=== PATIENT | female | born 1960 | race Caucasian/White ===

== ENCOUNTER 2016-09-22 09:42 | Emergency (ER) | payer MEDICAID, SELFPAY ==
[2016-09-22 09:43] VITALS: BP 148/95; PULSE 104; RESP 24; TEMP 36.6; O2SAT 98; BMI 24.0
--- NOTE | 2016-09-22 10:08 | ED.DCSUM_ITS ---
- ER Visit Summary Date of Service: 09/22/16 Chief Complaint: Diarrhea [] History of Present Illness: The patient is a 55 F He states for the past 2 days she has had diarrhea. When asked to describe it the only thing she can tell me is not brown. She states that she feels dehydrated and lightheaded when she stands up. She notes nausea without vomiting. No recent travel no bad food no recent antibiotics. She buys bottled water. When asked if she has any chronic medical problems she replies yes. She has not taken any Imodium because it has never worked for me. She states that she feels dehydrated and her electrolytes are off. No fevers. No blood in the stool. No mucus. History of inflammatory bowel disease.[] Physical Examination: Pressure 148/95 heart rate 104 respirations 16 pulse ox 98 % on room air temperature 97.9 Gen: Well-nourished well-developed Head: Normocephalic atraumatic Eyes: Perrl EOMI ENT: TMs clear no rhinorrhea moist mucous membranes Neck: Supple no lymphadenopathy no JVD nontender CVS: Slightly tachycardic regular rate rhythm no murmurs normal S1-S2 Respiratory: No distress clear to auscultation bilaterally chest nontender Abdomen: Soft nontender nondistended hyperactive bowel sounds no masses Back: Nontender Extremity: Nontender no edema Skin: Normal color no rash Neuro: alert orientated ?3 CN II-XII intact normal strength sensation reflexes gait cerebellar Psych: Normal affect normal mood [] Test Results: CBC BMP were obtained. These were negative. C. difficile fecal leukocytes were also negative. [] Emergency Department Course and Treatment: Patient received IV fluids and Imodium. Her orthostatics are negative. Patient is up walking in the department. I believe this to be a viral illness. [] Disposition: Home [] Impression:. 1. Diarrhea [] ED Disposition - Plan for ED Patient: Chief Complaint: General Illness Referrals: Marcelle Perez MD [Primary Care Provider] -
[2016-09-22 10:26] LABS: Absolute Lymphocyte Count 1.83 X10^3/ul (0.83-4.51); Absolute Neutrophil Count 4.5 X10^3/uL (2.0-7.7); Basophil# 0.01 X10^3/uL; Basophil% 0.1 % (0-1); Eosinophil# 0.03 X10^3/uL; Eosinophils% 0.4 % (0-5); Hematocrit 43.3 % (37-47); Hemoglobin 15.4 g/dl (12.0-15.0); Lymphocyte # 1.83 X10^3/ul (4.0); Lymphocyte % 27.2 % (19-41); Mean Corp Hgb Conc 35.6 g/gl (32-36); Mean Corpuscular Hgb 30.1 pg (27.0-32.0); Mean Corpuscular Volume 84.6 fL (81-99); Mean Platelet Vol. 8.6 fl (6.2-12.0); Monocyte# 0.39 X10^3/uL; Monocyte% 5.8 % (0-10); Neutrophil # 4.46 X10^3/uL (2.7-7.7); Neutrophil % 66.4 % (47-70); Platelet Count 246 K/mm3 (150-450); RBC Distribution Width CV 12.4 % (11.6-14.6); RBC Distribution Width SD 37.8 fl (35.1-43.9); Red Blood Count 5.12 M/mm3 (4.2-5.4); White Blood Count 6.7 K/mm3 (4.4-11.0)
[2016-09-22 10:28] LABS: POSITIVE COUNT NO; POSITIVE DIFFERENTIAL NO; POSITIVE MORPHOLOGY NO
[2016-09-22] MEDS: 0.9% Normal Saline 1,000 ML 1000 ML IV (10:28)
[2016-09-22] MEDS: Loperamide 2 MG Capsule 4 MG PO (10:28)
[2016-09-22 10:35] VITALS: BP 157/89; BP 159/80; PULSE 78; PULSE 84
[2016-09-22 10:40] LABS: Anion Gap 9 (5-15); BUN 7 mg/dL (7-18); BUN/Creat Ratio 12.9 RATIO (10-20); Calcium,Total 9.8 mg/dL (8.5-10.1); Chloride 94 mmol/L (98-107); Creatinine, Serum 0.54 mg/dL (0.55-1.02); EST Glomerular Filtration Rate 124 mL/min (>60); Est Glom Filt Rate - Afr Amer 149 mL/min (>60); Estimated Creatinine Clearance 100.45 ml/min; Glucose 102 mg/dL (70-110); Potassium 3.6 mmol/L (3.5-5.1); Sodium Level 130 mmol/L (136-145)
[2016-09-22 12:58] VITALS: BP 164/87; PULSE 88; RESP 16; O2SAT 98
--- NOTE | 2016-09-22 14:00 | ED.DEP ---
ED Disposition - Plan for ED Patient: Disposition: Home or Assisted Living Chief Complaint: General Illness Instructions: ED Diarrhea Viral Referrals: Marcelle Perez MD [Primary Care Provider] - As Needed
[2016-09-22 14:25] VITALS: BP 140/68; PULSE 70; RESP 18; O2SAT 98
== END 2016-09-22 14:28 | disposition home or self-care (01) ==
PROVIDERS: Emergency Provider Emergency Medicine; Family Provider Internal Medicine; PCP Internal Medicine
DX: R19.7 Diarrhea, unspecified (principal); R42 Dizziness and giddiness; I10 Essential (primary) hypertension; G89.29 Other chronic pain; Z79.891 Long term (current) use of opiate analgesic; K52.9 Noninfective gastroenteritis and colitis, unspecified
CPT/HCPCS: 80048; 83630; 85025; 87493; 87506; 96360; 96361; 99284; J7030; A4216

== ENCOUNTER 2018-06-14 15:00 | Outpatient (RCR) | payer MEDICARE, MEDICAID, SELFPAY ==
--- NOTE | 2018-02-13 15:08 | HP.PTEVAL2 ---
Patient's Visit Information SUNDEEP DE LA O is a 57 year old F referred to Physical Therapy by Marcelle Perez with a diagnosis of . Date of Evaluation: Physical Therapist: Beulah Napoles - Anticipated Interventions Thank you for the opportunity to evaluate your patient. For Medicare and Medicare HMO plans, please review the plan of care and approve it. It will need to be FAXED BACK to us at [phone] for Medicare purposes. Please let me know if there are questions or concerns regarding this plan of care. Physician Signature: Date:
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
--- NOTE | 2018-03-29 15:09 | HP.PTREVAL ---
Marcelle Perez, It has been my pleasure to treat SUNDEEP DE LA O over the last 12 visits for CERVICALGIA, LUMBAR SPIINAL STENOSIS WITH NEUROGENIC CONDITION. LBP/SCIATIC. Please see the progress note below for an update on the physical therapy plan of care! Subjective: PATIENT REPORTS HER POSTURE HAS IMPROVED. SHE REPORTS BETTER POSTURAL AWARENESS. SHE STATES SHE FEELS MORE ENERGIZED AND LIMBER. SHE STATES SHE CAN STAND AND WALK BETTER AND SHE HOPES WITH TIME HER PAIN WILL GET BETTER. PATIENT REPORTS SHE FEELS THERAPY IS HELPING AND SHE IS WILLING TO CONTINUE IF WE THINK IT MIGHT HELP. PATIENT REPORTS SHE HAD A RE-CHECK WITH DR. CHAU JOHNSON AND SHE IS CHANGING ONE OF HER MEDICINES DUE TO INSURANCE CHANGE. Objective/Function: PATIENT IS IMPROVING SLOWLY TOWARD ALL PT GOALS. SHE HAS INCREASED STRENGTH, INCREASED MOBILITY AND DECREASED TENDERNESS. UPON EXAM, SHE DEMONSTRATES INDEP GAIT INTO PT WITHOUT ANY ASSISTIVE DEVICES. DECREASED CADANCE. DECREASED TRUNK ROTATION. NO LOB. INDEP TRANSFER FROM SIT TO STAND WITHOUT UE ASSIST. Motor deficit: CLAUDY UE'S GROSSLY 5/5 EXCEPT SHOULDERS GRADED 4/5. CLAUDY LE'S 5/5 WITH MMT'ING EXCEPT HIPS GRADED 4/5. Sensory deficit: CLAUDY UE AND LE LIGHT TOUCH SENSATION IS INTACT AND SYMMETRICAL WITH TESTING TODAY BUT FEET NT. ROM deficit: CLAUDY UE'S AND LE'S WFL. Dural Signs: NEGATIVE CLAUDY UE'S AND LE'S. Lumbar mvmt loss: flex - MIN TO MOD. ext - PORTER. R SG - MOD TO PORTER. L SG - MOD TO PORTER. PATIENT C/O LBP WITH ROM TESTING ALL PLANES. Core strength: POOR. Palpation: NO ACUTE TENDERNESS WITH PALPATION OF HER LOWER THORACIC, LUMBAR, SACRAL OR HIP REGIONS TODAY. LUMBAR OSWESTRY HAS IMPROVED FROM 23 TO 19. Plan Plan: CONTINUE AQUATIC THERAPY 2X'S A WEEK X 2 WEEKS THEN 1X A WEEK X 3 WEEKS HELPING PATIENT TRANSITION TO INDEP POOL PROGRAM WITH MEMBERSHIP AT POOL OF HER CHOICE. PATIENT IS AGREEABLE. Goals Goal 1:: DECREASE C/O NECK, BACK AND EXTREMITY SX'S. Goal Time Frame: 4-6 Weeks Goal Progress: Progressing Goal 2:: IMPROVE PERSONAL CARE, LIFTING, WALKING, SITTING, STANDING, SLEEP, SOCIAL LIFE, TRAVL AND HOMEMAKING FUNCTION Goal Time Frame: 4-6 Weeks Goal Progress: Progressing Goal 3:: INSTRUCT IN PROPHYLAXIS Goal Time Frame: 4-6 Weeks Goal Progress: Progressing Anticipated Interventions Patient/Client Instruction: Educate patient on: Condition, Plan of Care, Risk Factors, Benefits of Fitness Program For the Purpose of:: To improve self management Therapeutic Exercise to Include: Strength training, Body mechanics, Postural training, Flexibilty training, In an aquatic setting, Active ROM, Dynamic Lumbar Stabilization, Scapular Strength/Stabilization For the Purpose of:: To decrease pain, To increase ROM, To improve muscle performance and motor function, To increase tolerance to activity/condition/position, To improve ability of physical actions for home/community/work/leisure Please do not hesitate to contact me at [phone] by phone or if you have questions or concerns regarding this new plan of care! Sincerely, Beulah Napoles, PT, Cert MDT
--- NOTE | 2018-06-14 15:45 | HP.PTDCSUM ---
HP - PT D/C Summary It has been my pleasure to treat SUNDEEP DE LA O under orders from Marcelle Perez, for the diagnosis of CERVICALGIA, LUMBAR SPIINAL STENOSIS WITH NEUROGENIC CONDITION. LBP/SCIATIC for a total of 20 visit(s). Discharge Date: Please see the following information for a summary of their discharge status. - Subjective Subjective: PATIENT REPORTS SHE IS DOING BETTER AND IS PLANNING TO GET A MEMBERSHIP AT LOCAL POOL TO CONTINUE INDEP WATER EX. PATIENT REPORTS LESS PAIN, LESS LIMPING, BEING MORE LIMBER AND BETTER POSTURE SINCE STARTING PHYSICAL THERAPY. PATIENT REPORTS HAVING AN MRI OF HER LOW BACK APPROX MAY 05 [address] VALDEZ TOLD HER THAT HER STENOSIS IS WORSE AND THE BONES THE SPECIALIST IS CONCERNED ABOUT HAVE MOVED A LITTLE. FOLLOW UP PENDING WITH DR. STOKES. - Pain Lumbar spine Pain Intensity (Out of 10): 5 Cerv. Spine Pain Intensity (Out of 10): 4 LEs Pain Intensity (Out of 10): 4 - Overall Improvement % Improvement: 60 - Objective Objective/Function: PATIENT HAS CONTINUED TO IMPROVE SLOWLY. SHE HAS INCREASED STRENGTH, INCREASED MOBILITY AND DECREASED TENDERNESS. SHE IS INDEP WITH A POOL PROGRAM AND PLANS TO GET LOCAL POOL MEMBERSHIP NEXT WEEK. SHE HAS ALSO BEEN GIVEN A HEP. UPON EXAM, SHE DEMONSTRATES INDEP GAIT INTO PT WITHOUT ANY ASSISTIVE DEVICES. DECREASED CADANCE. DECREASED TRUNK ROTATION. NO LOB. INDEP TRANSFER FROM SIT TO STAND WITHOUT UE ASSIST. Motor deficit: CLAUDY UE'S AND LE'S GROSSLY 5/5 WITH MMT'ING. Sensory deficit: CLAUDY UE AND LE LIGHT TOUCH SENSATION IS INTACT AND SYMMETRICAL (FEET NT). ROM deficit: CLAUDY UE'S AND LE'S WFL. Dural Signs: NEGATIVE CLAUDY UE'S AND LE'S. Lumbar mvmt loss: flex - MIN TO MOD. ext - PORTER. R SG - MOD. L SG - MOD. PATIENT C/O LBP WITH ROM TESTING ALL PLANES. Core strength: POOR. Palpation: NO ACUTE TENDERNESS WITH PALPATION OF HER LOWER THORACIC, LUMBAR, SACRAL OR HIP REGIONS TODAY. LUMBAR OSWESTRY HAS IMPROVED FROM 23 TO 19 AND NOW 17. - Goals Goal 1:: DECREASE C/O NECK, BACK AND EXTREMITY SX'S. Goal Progress: Goal Met Goal 2:: IMPROVE PERSONAL CARE, LIFTING, WALKING, SITTING, STANDING, SLEEP, SOCIAL LIFE, TRAVL AND HOMEMAKING FUNCTION Goal Progress: Goal Met Goal 3:: INSTRUCT IN PROPHYLAXIS Goal Progress: Goal Met - Plan Plan: D/C TO INDEP WATER EX AT FACILITY OF PATIENTS CHOICE. PATIENT AGREEABLE. - D/C Information If there are questions or concerns regarding this patient's physical therapy, please feel free to call me at [phone]. Thank you for the referral of this patient. Sincerely, Beulah Napoles, PT, Cert MDT
== END 2018-06-14 19:00 | disposition home or self-care (01) ==
LOC: PT 15:00
PROVIDERS: Family Provider Internal Medicine; PCP Internal Medicine; Referring Provider Internal Medicine; Visit Provider Internal Medicine
DX: M54.2 Cervicalgia (principal); M54.41 Lumbago with sciatica, right side; G89.29 Other chronic pain; M48.00 Spinal stenosis, site unspecified
CPT/HCPCS: 97113; 97163; 97530

== ENCOUNTER → 2018-11-27 13:12 | Outpatient (CLI) | payer MEDICARE, MEDICAID, SELFPAY ==
[2018-11-27 14:02] LABS: Amphetamine Urine VISTA NEGATIVE (<1000 ng/mL); Barbiturate Urine VISTA NEGATIVE (< 200 ng/mL); Benzodiazepine Urine VISTA POSITIVE (< 200 ng/mL); Cocaine Urine VISTA NEGATIVE (< 300 ng/mL); Ecstacy Urine VISTA NEGATIVE (< 500 ng/mL); Methadone Urine VISTA NEGATIVE (< 300 ng/mL); PCP Urine VISTA NEGATIVE (< 25 ng/mL); THC Urine VISTA NEGATIVE (< 50 ng/mL); Vista UDS pH Range 7
== END ==
PROVIDERS: Family Provider Internal Medicine; PCP Internal Medicine; Referring Provider Anesthesiology Pain Medicine; Visit Provider Anesthesiology Pain Medicine
DX: F11.20 Opioid dependence, uncomplicated (principal)
CPT/HCPCS: 80307

== ENCOUNTER 2019-01-29 15:30 | Outpatient (RCR) | payer MEDICARE, MEDICAID, SELFPAY ==
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
--- NOTE | 2018-12-25 11:34 | HP.PTREVAL ---
Marcelle Perez MD, It has been my pleasure to treat SUNDEEP DE LA O over the last 9 visits for LUMBAGO. Please see the progress note below for an update on the physical therapy plan of care! Subjective: PATIENT REPORTS SHE IS DEFINATELY GETTING BETTER. PATIENT REPORTS SHE IS CONSIDERING MEMBERSHIP HERE. PATIENT REPORTS SHE STARTED SEEING DR. WELSH WITH NEXT JOCELYN'T PENDING TOMORROW. Objective/Function: INDEP GAIT INTO PT WITHOUT ANY ASSISTIVE DEVICES. DECREASED CADANCE. DECREASED TRUNK ROTATION. NO LOB. INDEP TRANSFER FROM SIT TO STAND WITHOUT UE ASSIST. Motor deficit: CLAUDY UE'S GROSSLY 4/5. CLAUDY LE'S 5/5 WITH MMT'ING EXCEPT HIPS GRADED 4-/5. Sensory deficit: CLAUDY UE AND LE LIGHT TOUCH SENSATION IS INTACT AND SYMMETRICAL WITH TESTING TODAY BUT FEET NT. ROM deficit: CLAUDY UE'S AND LE'S WFL. Reflexes: 2/3 CLAUDY UE'S AND LE'S. Dural Signs: NEGATIVE CLAUDY UE'S AND LE'S. Lumbar mvmt loss: flex - MOD. ext - PORETR. R SG - PORTER. L SG - PORTER. PATIENT C/O LBP WITH ROM TESTING ALL PLANES. Core strength: POOR. Palpation: PATIENT HAS C/O TENDERNESS WITH LIGHT PALPATION THROUGHOUT THE ENTIRE SPINE ESPECIALLY L45S1 REGION. OTHER: PATIENT PRESENTS TODAY WITH FINDINGS STILL SIMILAR TO INITIAL PHYSICAL THERAPY EVALUATION IN MAY OF THIS YEAR BUT SHE IS REPORTING DECREASED PAIN, INCREASED FUNCTION AND IS BECOMING INDEP WITH A WATER EX PROGRAM. LUMBAR OSWESTRY SCORE HAS IMPROVED FROM 23 TO 19 Plan Plan: f/u with supervising PT next appt. Would recommend progression to I pool program with [employer] membership as well as wean from AT to 1x a week. *Follow-up with compliance of new stretch HEP. Goals Goal 1:: DECREASE C/O BACK AND CLAUDY LE SX'S Goal Time Frame: 4-6 Weeks Goal Progress: Progressing Goal 2:: IMPROVE LIFTING, WALKING, SITTING, STANDING, SLEEP, TRAVEL, SOCIAL LIFE AND HOMEMAKING FUNCTION Goal Time Frame: 4-6 Weeks Goal Progress: Progressing Goal 3:: INSTRUCT IN PROPHYLAXIS Goal Time Frame: 4-6 Weeks Goal Progress: Progressing Anticipated Interventions Patient/Client Instruction: Educate patient on: Condition, Plan of Care, Risk Factors, Benefits of Fitness Program For the Purpose of:: To improve self management Therapeutic Exercise to Include: Strength training, Body mechanics, Postural training, Flexibilty training, In an aquatic setting, Dynamic Lumbar Stabilization For the Purpose of:: To decrease pain, To improve muscle performance and motor function, To increase tolerance to activity/condition/position, To improve ability of physical actions for home/community/work/leisure, To improve gait and locomotor functions Please do not hesitate to contact me at [phone] by phone or if you have questions or concerns regarding this new plan of care! Sincerely, Beulah Napoles, PT, Cert MDT
--- NOTE | 2019-01-29 16:01 | HP.PTDCSUM ---
HP - PT D/C Summary It has been my pleasure to treat SUNDEEP DE LA O under orders from Marcelle Perez MD, for the diagnosis of LUMBAGO for a total of 16 visit(s). Discharge Date: 01/29/19 Please see the following information for a summary of their discharge status. - Subjective Subjective: PATIENT REPORTS SHE IS DEFINATELY LOOSER. SHE REPORTS THAT SHE IS MUCH MORE AWARE OF HER POSTURE AND IT HELPS TO CONTROL HER POSTURE. SHE REPORTS IT IS HARD TO MAINTAIN HER POSTURE THOUGH. PATIENT REPORTS THIS ROUND OF THERAPY HAS REALLY HELPED HER BE ABLE TO DO THE EX'S BETTER. JOINED OUR [employer] WITH THE PLAN TO CONTINUE HER WATER EX PROGRAM NOW. PATIENT REPORTS SHE IS DOWN TO VERY LITTLE PERCOCET, TRAMADOL, AND VALIUM/SOMA. STATES SHE HAS MADE SEVERAL MEDICATION CHANGES. HAS BEEN TO PAIN MGMT SEVERAL TIMES. NO RECENT INJECTIONS. STATES THERE HAS BEEN SOME CONFUSION ABOUT HER TESTING. I KNOW IT MAKES ME MORE LIMBER. - Pain R Hip Pain Intensity (Out of 10): 6 Lumbar Spine Pain Intensity (Out of 10): 6 R SH Pain Intensity (Out of 10): 6 - Overall Improvement % Improvement: 80 - Objective Objective/Function: Lumbar mvmt loss: flex - MOD. ext - PORTRE. R SG - PORTER. L SG - PORTER. PATIENT DENIES INCREASED PAIN WITH LUMBAR ROM TESTING TODAY BUT STATES SHE DID TAKE PAIN MEDICINE BEFORE COMING TODAY. Core strength: POOR. Palpation: PATIENT HAS C/O TENDERNESS WITH LIGHT PALPATION THROUGHOUT THE ENTIRE SPINE ESPECIALLY L45S1 REGION. LUMBAR OSWESTRY SCORE HAS IMPROVED FROM 23 TO 19 OVER-ALL. - Goals Goal 1:: DECREASE C/O BACK AND CLAUDY LE SX'S Goal Progress: Goal Met Goal 2:: IMPROVE LIFTING, WALKING, SITTING, STANDING, SLEEP, TRAVEL, SOCIAL LIFE AND HOMEMAKING FUNCTION Goal Progress: Goal Met Goal 3:: INSTRUCT IN PROPHYLAXIS Goal Progress: Goal Met - Plan Plan: D/C TO INDEP WATER EX PROGRAM. PATIENT IS AGREEABLE. - D/C Information If there are questions or concerns regarding this patient's physical therapy, please feel free to call me at [phone]. Thank you for the referral of this patient. Sincerely, Beulah Napoles, PT, Cert MDT
== END 2019-01-29 19:00 | disposition home or self-care (01) ==
LOC: PT 15:30
PROVIDERS: Family Provider Internal Medicine; PCP Internal Medicine; Referring Provider Internal Medicine; Visit Provider Internal Medicine
DX: M48.062 Spinal stenosis, lumbar region with neurogenic claudication (principal); M54.42 Lumbago with sciatica, left side; M54.41 Lumbago with sciatica, right side; G89.29 Other chronic pain
CPT/HCPCS: 97113; 97162; 97530

== ENCOUNTER 2024-01-26 14:12 | Outpatient (RCR) | payer MEDICARE, MEDICAID, SELFPAY ==
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
--- NOTE | 2024-03-22 15:04 | HP.PT.NRP ---
Patient Information Patient Information: SUNDEEP DE LA O was seen in my office for initial evaluation on 01/26/24. The following Plan of Care was established for this patient: POC Established Initial Frequency: 2x /Week Initial Duration: 4 Weeks Anticipated Interventions Patient/Client Instruction: Educate patient on: Condition and Plan of Care For the Purpose of:: To decrease pain, To increase ROM, To improve muscle performance and motor function, To improve ability to perform ADL's, To increase tolerance to activity/condition/position, To improve ability of physical actions for home/community/work/leisure, To improve health of tissue, To decrease soft tissue restriction, To increase flexibility/ROM and To improve tolerance to ADL's Therapeutic Exercise to Include: Strength training, Endurance training, Balance training, Body mechanics, Postural training, Flexibilty training, In an aquatic setting and Dynamic Lumbar Stabilization For the Purpose of:: To decrease pain, To increase ROM, To improve muscle performance and motor function, To improve ability to perform ADL's, To increase tolerance to activity/condition/position, To improve ability of physical actions for home/community/work/leisure, To improve gait and locomotor functions, To improve health of tissue, To decrease soft tissue restriction, To improve endurance and To reduce risk of recurrence TENS: Yes IF ES: Yes Cryotherapy (ice pack, ice massage): Yes Thermo therapy (hot pack): Yes Ultrasound (thermal/non thermal): Yes For the Purpose of:: To decrease pain, To increase ROM, To improve nutrient delivery to tissue, To increase oxygenation perfusion, To improve health of tissue and To decrease soft tissue restriction Last Seen Last Seen: This patient was last seen in our office . Pertinent comments regarding their Physical therapy will appear below: Patient was seen for Aquatic Therapy for PT Evaluation At this point I will be discontinuing this patient from physical therapy. I would be happy to see this patient again in the future if found appropriate by the physician. Thank you! Maninder John, PT, Cert MDT, OCS Balance/Gait/Functional tests Balance/Special Test Scores Oswestry Low Back Score: 33
== END 2024-01-26 19:00 | disposition home or self-care (01) ==
LOC: PT 14:12
PROVIDERS: PCP Internal Medicine; Referring Provider Internal Medicine; Visit Provider Internal Medicine
DX: M62.838 Other muscle spasm (principal); M54.42 Lumbago with sciatica, left side; M54.41 Lumbago with sciatica, right side; G89.29 Other chronic pain
CPT/HCPCS: 97162